=== PATIENT | female | born 1950 | race Caucasian/White ===

== ENCOUNTER 2019-05-05 20:23 | Emergency (ER) | payer MEDICARE, MEDICAID, SELFPAY ==
[2019-05-05] VITALS (24 sets, daily range): BP systolic 57–114; BP diastolic 36–86; PULSE 68–80; RESP 15–22; TEMP 36.7; O2SAT 95–99
--- NOTE | ~2019-05-05 | CT_ITS ---
EXAMINATION: CT abdomen pelvis w con DATE: 05/05/2019 22:25 INDICATION: Abdominal distention TECHNIQUE: Computed tomography (CT) of the abdomen and pelvis was performed with 100 cc Omnipaque 350 intravenous contrast. The dose-length product was 1370.56 mGy-cm. Automated exposure control and ite rative reconstruction technique were employed. COMPARISON: CT dated 11/12/2013 FINDINGS: No significant pleural or pericardial effusion. Heart size normal. There is atherosclerosis of the aorta and coronary arteries. Small subcentimeter hypodensities of the liver, most likely tio gn. There is focal fatty infiltration of the liver near the falciform ligament. The spleen, pancreas, adrenal glands and kidneys are unremarkable. There is mild thickening of the si gmoid colon and rectum. No lymphadenopathy. There is a dynamic compression screw in the right hip. No evidence for aneurysm. There is atherosclerotic narrowing of the iliac arteries and aorta distally. IMPRESSION: 1. Mild thickening of the sigmoid colon and rectum. Differential diagnosis includes colitis and less likely neoplasm. Recommend GI consultation. Reviewed, dictated and finalized at location A. ROOM IMPRESSION: 1. Mild thickening of the sigmoid colon and rectum. Differential diagnosis incl udes colitis and less likely neoplasm. Recommend GI consultation.
--- NOTE | 2019-05-05 20:26 | ED.GENADULT ---
HPI - General Adult General Chief complaint: Abdominal Pain <Mimi Bell PA-C - Last Filed: 05/05/19 23:37> Stated complaint: abd <Mimi Bell PA-C - Last Filed: 05/05/19 23:37> Time Seen by Provider: 05/05/19 20:26 <Mimi Bell PA-C - Last Filed: 05/05/19 23:37> Source: patient <CYNTHIA Pizarro Last Filed: 05/05/19 23:37> Mode of arrival: EMS <CYNTHIA Pizarro Last Filed: 05/05/19 23:37> Limitations: physical limitation <CYNTHIA Pizarro Last Filed: 05/05/19 23:37> History of Present Illness HPI narrative: Pt was sent from longterm for evaluation of possible bowel obstruction. KUB at the facility was unremarkable, they report the patient had a large bowel movement yesterday and the patient reports she had another today. She is complaining of pain across the lower abdomen. Denies fever. Continues to eat and drink as usual. 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 She also has [place] amputation on right. <Mimi Bell PA-C - Last Filed: 05/05/19 23:37> Onset (ago): hour(s) <Mimi Bell PA-C - Last Filed: 05/05/19 23:37> Location: abdomen (lower abdomen) <Mimi Bell PA-C - Last Filed: 05/05/19 23:37> Radiation: non-radiation <CYNTHIA Pizarro Last Filed: 05/05/19 23:37> Severity: mild <CYNTHIA Pizarro Last Filed: 05/05/19 23:37> Quality: aching and constant <CYNTHIA Pizarro Last Filed: 05/05/19 23:37> Relieving factors: none <CYNTHIA Pizarro Last Filed: 05/05/19 23:37> Exacerbating factors: other (worse with palpation.) <Mimi Bell PA-C - Last Filed: 05/05/19 23:37> Associated symptoms: denies other symptoms <Mimi Bell PA-C - Last Filed: 05/05/19 23:37> Treatments prior to arrival: none <Mimi Bell PA-C - Last Filed: 05/05/19 23:37> Related Data Allergies/adverse reactions: Allergies Allergy/AdvReac Type Severity Reaction Status Date / Time ciprofloxacin Allergy Mild Verified 08/17/18 20:18 felodipine Allergy Mild Verified 08/17/18 20:18 haloperidol Allergy Mild Verified 08/14/18 01:39 Penicillins Allergy Mild Verified 08/17/18 20:18 phenytoin Allergy Mild Verified 08/17/18 20:18 ziprasidone Allergy Mild Verified 08/17/18 20:18 BENZTROPINE MESYLATE Allergy Mild Uncoded 08/17/18 20:18 [place] Allergy Unknown Uncoded 08/14/18 01:39 <Mimi Bell PA-C - Last Filed: 05/05/19 23:37> Review of Systems Review of Systems: All systems reviewed & are unremarkable except as noted in HPI and below <Mimi Bell PA-C - Last Filed: 05/05/19 23:37> [facility] Past Medical History Medical History: Medical History (Updated 05/05/19 @ 23:34 by Mimi Bell PA-C) Amputation above knee Stroke <Mimi Bell PA-C - Last Filed: 05/05/19 23:37> Social History Social History: Social History (Updated 05/05/19 @ 20:50 by Mimi Bell PA-C) Smoking status: Never smoker Alcohol intake: never Substance use: never Living arrangements: longterm <Mimi Bell PA-C - Last Filed: 05/05/19 23:37> Exam Const: General: no acute distress and alert <Mimi Bell PA-C - Last Filed: 05/05/19 23:37> Orientation/consciousness: patient oriented x3 <Mimi Bell PA-C - Last Filed: 05/05/19 23:37> Limitations: physical limitations (speech is slurred as result of stroke) <CYNTHIA Pizarro Last Filed: 05/05/19 23:37> HENMT: Head: normal to inspection <CYNTHIA Pizarro Last Filed: 05/05/19 23:37> Eyes: Conjunctivae: conjunctivae normal <CYNTHIA Pizarro Last Filed: 05/05/19 23:37> Pupils: Equal, round and reactive pupils present <CYNTHIA Pizarro Last Filed: 05/05/19 23:37> Resp: Effort & Inspection: normal respiratory effort <CYNTHIA Pizarro Last Filed: 05/05/19 23:37> Auscultation: clear to auscultation bilaterally <Mimi Contreras Ame
[2019-05-05 21:01] LABS: Basophils Absolute Auto 0.1 K/mm3 (0.0-0.1); Basophils Percent Auto 0.7 % (0.2-1.2); Eosinophils Absolute Auto 0.2 K/mm3 (0-0.3); Eosinophils Percent Auto 2.1 % (0-4.4); Hemoglobin 12.1 g/dL (12.0-15.0); Immature Granulocyte Absolute 0.06 K/mm3 (0.00-0.031); Immature Granulocyte Percent A 0.6 % (0-0.5); Lymphocytes Absolute Auto 2.78 K/mm3 (0.9-3.2); Mean Corpuscular HGB Conc 33.6 g/dl (32-36); Mean Corpuscular Hemoglobin 29.2 pg (26-34); Mean Platelet Volume 11.9 fl (7.4-10.4); Monocytes Absolute Auto 0.6 K/mm3 (0.1-0.6); Monocytes Percent Auto 5.6 % (2.6-8.5); Platelet Count Result 231 k/mm3 (150-375); Red Blood Count 4.14 M/mm3 (4.2-5.4); White Blood Count 10.7 K/mm3 (4.5-10.0)
[2019-05-05 21:12] LABS: Alanine Aminotransferase 20 U/L (4-35); Albumin Level 4.2 g/dL (3.5-5.1); Alkaline Phosphatase 81 U/L (38-126); Aspartate Amino Transferase 22 U/L (14-36); Bilirubin,Total 0.4 mg/dL (0.2-1.3); Blood Urea Nitrogen 16 mg/dL (7-17); Calcium 9.8 mg/dL (8.4-10.2); Carbon Dioxide 24 mmol/L (22-30); Chloride 90 mmol/L (98-107); Estimated Glomerular Filt Rate > 60; Glucose 156 mg/dL (65-105); Potassium 3.3 mmol/L (3.4-5.0); Sodium 128 mmol/L (137-145)
[2019-05-05] MEDS: SODIUM CHLORIDE 0.9% IV 1,000 ML 999 ML IV CONT (21:13)
[2019-05-05 21:15] LABS: Add Urine Microscopic? YES; Appearance Urine Clear (Clear); Bacteria Urine Trace /hpf; Bilirubin Urine Negative (Negative); Blood Urine Negative (Negative); Color Urine Straw (Yellow); Glucose Urine UA Negative (Negative); Ketones Urine Negative (Negative); Leukocyte Esterase Ur 2+ LEU/UL (Negative); Nitrate Urine Negative (Negative); Protein Urine Negative (Negative); RBC Urine 0-2 /hpf (0-2); Specific Grav Ur 1.005 (1.001-1.035); Squamous Epithelial Cell Urine Occasional /hpf (Few); Urobilinogen Urine Negative mg/dL (<2.0)
[2019-05-05 21:38] LABS: Magnesium 1.4 mg/dL (1.6-2.3)
[2019-05-06] VITALS (7 sets, daily range): BP systolic 107; BP diastolic 45; PULSE 71–81; RESP 11–23; O2SAT 98–100
--- NOTE | 2019-05-06 01:29 | PC.NURSE ---
Addendum entered by Yumiko Franklin 05/06/19 01:51: CALLED [facility] FOR UPDATE...EMS EN ROUTE TO DROP OFF PATIENT, WILL TAKE THIS PATIENT AFTER DROP OFF COMPLETE Original Note: cALLED [facility] TO TRANSPORT TO FACILITY....ETA 20-30 MINUTES
--- NOTE | 2019-05-10 03:08 | PC.NURSE ---
Late Entry NS was finished or infused at 2208 on 05/05/2019. Total volume infused was 1000ml.
== END 2019-05-06 02:20 ==
PROVIDERS: Physician Assistant; Emergency Provider Emergency Medicine; PCP Family Medicine
DX: R10.30 Lower abdominal pain, unspecified (principal); Z89.611 Acquired absence of right leg above knee; I95.9 Hypotension, unspecified; R93.3 Abnormal findings on diagnostic imaging of other parts of digestive tract
CPT/HCPCS: 36415; 51701; 74177; 80053; 81001; 83735; 85025; 96360; 99284; J7030; Q9967

== ENCOUNTER 2019-07-10 10:57 | Inpatient (IN) | payer MEDICARE, MEDICAID, SELFPAY ==
[2019-07-10] VITALS (14 sets, daily range): BP systolic 48–118; BP diastolic 28–84; PULSE 84–145; RESP 25–42; TEMP 36.4–36.7; O2SAT 76–99; BMI 32.5
--- NOTE | ~2019-07-10 | XR_ITS ---
XR chest 1V portable DATE: 07/10/2019 11:32 INDICATION: Cough, fever TECHNIQUE: Portable upright AP chest on 07/10/2019 at 1130 hours COMPARISON: 08/17/2018 portable AP chest 08/14/2018 CTA chest FINDINGS: Again noted is diffuse interstitial prominence of the lungs, present on 08/17/2018, likely d ue to chronic interstitial fibrotic change. Superimposed mild interstitial pneumonitis or edema can't be excluded. No pleural effusion. Heart size appears within normal range. Aortic arch calcification. Osteoarthritic changes at the glenohumeral joints. Diffuse osteopenia. IMPRESSION: Chronic interstitial changes throughout both lungs Reviewed, dictated and finalized at location A.
--- NOTE | ~2019-07-10 | XR_ITS ---
XR chest port-a-cath/central DATE: 07/10/2019 14:09 INDICATION: Central line placement TECHNIQUE: Portable AP chest on 07/10/2019 at 1403 hours COMPARISON: 07/10/2019 portable AP chest at 1130 hours FINDINGS: Right internal jugular central venous catheter overlies the caudal aspect of the superior v maria m cava. No evidence of pneumothorax. There are interstitial infiltrates predominating in the lower lung zones. No pleural effusion. Normal heart size. IMPRESSION: Right internal jugular central venous catheter placement in caudal aspect of superior juliana a cava; no pneumothorax Reviewed, dictated and finalized at Location A. Reviewed, dictated and finalized at location A. IMPRESSION: Right internal jugular central venous catheter placement in caudal aspect of superior vena cava; no pneumothorax
--- NOTE | 2019-07-10 11:14 | ECG_ITS ---
Measurements Intervals [place] Rate: 82 P: 66 [place]: 193 QRS: -20 QRSD: 105 T: 33 QT: 376 QTc: 440 Interpretive Statements SINUS RHYTHM VENTRICULAR BIGEMINY AND VENTRICULAR PREMATURE COMPLEX POSSIBLE LEFT ATRIAL ENLARGEMENT BORDERLINE ST-T WAVE ABNORMALITY- ANT/INF LEADS ABNORMAL ECG Electronically Signed On 07-10-2019 16:33:28 CDT by Regulo Swift D.O.
--- NOTE | 2019-07-10 11:17 | ED.FEVER ---
HPI - Fever General Chief Complaint: Fever Stated Complaint: lethargy History of Present Illness HPI Narrative: Fever cough and confusion Related Data Allergies Allergy/AdvReac Type Severity Reaction Status Date / Time ciprofloxacin Allergy Mild Verified 08/17/18 20:18 felodipine Allergy Mild Verified 08/17/18 20:18 haloperidol Allergy Mild Verified 08/14/18 01:39 Penicillins Allergy Mild Verified 08/17/18 20:18 phenytoin Allergy Mild Verified 08/17/18 20:18 ziprasidone Allergy Mild Verified 08/17/18 20:18 BENZTROPINE MESYLATE Allergy Mild Uncoded 08/17/18 20:18 [place] Allergy Unknown Uncoded 08/14/18 01:39 PMFSH Past Medical History Medical History (Updated 07/10/19 @ 14:44 by Tobin Mike MD) Amputation above knee Stroke Social History Social History (Updated 05/05/19 @ 20:50 by Mimi Bell PA-C) Smoking status: Never smoker Alcohol intake: never Substance use: never Gender identity (if verbalized by the patient): Female Course Vital Signs Vital signs: Vital Signs Temperature 36.7 C 07/10/19 11:26 Pulse Rate 86 07/10/19 11:26 Respiratory Rate 25 H 07/10/19 11:26 Blood Pressure 92/64 L 07/10/19 11:26 Pulse Oximetry 98 07/10/19 11:26 Temperature 36.7 C 07/10/19 11:26 Pulse Rate 84 07/10/19 12:49 Respiratory Rate 30 H 07/10/19 12:49 Blood Pressure 78/50 L 07/10/19 12:49 Pulse Oximetry 99 07/10/19 12:49 Procedures Central Line Placement Right IJ: Central Line Date: 07/10/19 Central Line Time: 14:30 Patient Placed on Monitor/Pulse Ox: Yes Max. Sterile Barrier Technique: Caps, large sterile sheet and hand hygiene Central Line Prep: 2% chlorhexidine scrub and sterile drapes applied Technique: US-Guided Local Anesthetic: lidocaine 1% Amount of anesthesia used (mL): 3 Ultrasound Used for Placement: Yes Central Line Lumen Inserted: triple Post Procedure: sutured in place, good blood return, all ports aspirated, flushed, capped and sterile dressing applied Post Procedure X-Ray: tip of catheter in good position Patient Tolerated Procedure: well Complications: none MDM - Fever Differential Diagnosis Differential diagnosis: Likely fever of unknown origin, community acquired pneumonia, pyelonephritis, viral infection, sepsis, influenza and other (COVID-19) Medical Records Attestation: I reviewed the patient's medical records. Lab Data Attestation: I reviewed the patient's lab results. Result diagrams: 07/10/19 11:33 07/10/19 11:33 Labs: Lab Results 07/10/19 07/10/19 07/10/19 Range/Units 11:33 11:33 11:33 WBC 12.7 H (4.5-10.0) K/mm3 RBC 4.38 (4.2-5.4) M/mm3 Hgb 12.8 (12.0-15.0) g/dL Hct 38.4 (37.0-47.0) % MCV 87.7 (80-100) fl MCH 29.2 (26-34) pg MCHC 33.3 (32-36) g/dl RDW 14.6 H (11.5-14.5) % Plt Count 224 (150-375) k/mm3 MPV 12.3 H (7.4-10.4) fl Immature Gran % (Auto) 0.3 (0-0.5) % Neut % (Auto) 87.7 H (45.5-73.1) % Lymph % (Auto) 6.8 L (18.3-44.2) % Phillips % (Auto) 5.0 (2.6-8.5) % Eos % (Auto) 0.0 (0-4.4) % Baso % (Auto) 0.2 (0.2-1.2) % Lymph # (Auto) 0.86 L (0.9-3.2) K/mm3 Phillips # (Auto) 0.6 (0.1-0.6) K/mm3 Eos # (Auto) 0.0 (0-0.3) K/mm3 Baso # (Auto) 0.0 (0.0-0.1) K/mm3 Abs Immat Gran (auto) 0.04 H (0.00-0.031) K/mm3 Absolute Neuts (auto) 11.2 H (1.3-6.7) K/mm3 Absolute Nucleated RBC 0.0 (0.0-0.012) K/mm3 Nucleated RBC % 0.0 (0.0-0.2) % PT 12.2 (11.1-14.7) Seconds INR 0.9 APTT 35.8 (22.3-36.8) SECONDS Sodium 132 L (137-145) mmol/L Potassium 3.4 (3.4-5.0) mmol/L Chloride 95 L (98-107) mmol/L Carbon Dioxide 20 L (22-30) mmol/L BUN 17 (7-17) mg/dL Creatinine 1.00 (0.7-1.0) mg/dL Estim Creat Clear Calc Not Reportable Estimated GFR 55 L (59 - ) Glucose 335 H
[2019-07-10] MEDS: SODIUM CHLORIDE 0.9% IV 1,000 ML 999 ML IV CONT ×2 (11:45→13:05)
[2019-07-10 12:00] LABS: Basophils Percent Auto 0.2 % (0.2-1.2); Hematocrit 38.4 % (37.0-47.0); Hemoglobin 12.8 g/dL (12.0-15.0); Immature Granulocyte Absolute 0.04 K/mm3 (0.00-0.031); Immature Granulocyte Percent A 0.3 % (0-0.5); Lymphocytes Absolute Auto 0.86 K/mm3 (0.9-3.2); Lymphocytes Percent Auto 6.8 % (18.3-44.2); Mean Corpuscular HGB Conc 33.3 g/dl (32-36); Mean Corpuscular Hemoglobin 29.2 pg (26-34); Mean Corpuscular Volume 87.7 fl (80-100); Mean Platelet Volume 12.3 fl (7.4-10.4); Monocytes Absolute Auto 0.6 K/mm3 (0.1-0.6); Neutrophils Absolute Auto 11.2 K/mm3 (1.3-6.7); Neutrophils Percent Auto 87.7 % (45.5-73.1); Platelet Count Result 224 k/mm3 (150-375); Red Blood Count 4.38 M/mm3 (4.2-5.4); Red Cell Distribution Width 14.6 % (11.5-14.5); White Blood Count 12.7 K/mm3 (4.5-10.0)
[2019-07-10 12:15] LABS: Add Urine Microscopic? YES; Appearance Urine Cloudy (Clear); Bacteria Urine Trace /hpf; Bilirubin Urine Negative (Negative); Blood Urine Negative (Negative); Color Urine Yellow (Yellow); Glucose Urine UA 1+ mg/dL (Negative); Ketones Urine Trace mg/dL (Negative); Leukocyte Esterase Ur 3+ LEU/UL (Negative); Mucus Urine Rare /lpf; Nitrate Urine Negative (Negative); Protein Urine 2+ mg/dL (Negative); Specific Grav Ur 1.016 (1.001-1.035); Squamous Epithelial Cell Urine Occasional /hpf (Few); Urobilinogen Urine Negative mg/dL (<2.0); WBC Clumps Urine Present /HPF; WBC Urine >75 /hpf
[2019-07-10 12:16] LABS: INR 0.9; Prothrombin Time 12.2 Seconds (11.1-14.7)
[2019-07-10 12:17] LABS: Partial Thromboplastin Time 35.8 SECONDS (22.3-36.8)
[2019-07-10 12:21] LABS: Alanine Aminotransferase 22 U/L (4-35); Albumin Level 4.2 g/dL (3.5-5.1); Alkaline Phosphatase 77 U/L (38-126); Aspartate Amino Transferase 28 U/L (14-36); Bilirubin,Total 0.2 mg/dL (0.2-1.3); Blood Urea Nitrogen 17 mg/dL (7-17); Calcium 8.3 mg/dL (8.4-10.2); Carbon Dioxide 20 mmol/L (22-30); Chloride 95 mmol/L (98-107); Estimated Glomerular Filt Rate 55; Glucose 335 mg/dL (65-105); Potassium 3.4 mmol/L (3.4-5.0); Sodium 132 mmol/L (137-145)
[2019-07-10 12:29] LABS: CRP 19.6 mg/dL (<1.0)
[2019-07-10] MEDS: NOREPINEPHRINE 8 MG/D5W 250 ML 8 MG/250 ML BAG 9.4 MG IV CONT (14:17)
[2019-07-10 14:43] LABS: Base Excess ABG -2.7 mEq/l (+/-2.0); Fractional Inspired Oxygen 21 %; HCO3 ABG 20.4 mEq/l (22.0-26.0); Oxygen Content ABG 17.6 %vol (16.0-22.0); Oxygen Saturation ABG 96.1 % (95.0-100.0); Oxyhemoglobin 94.5 % THb (90.0-100.0); PCO2 ABG 30.8 mmHg (35.0-45.0); PO2 ABG 77.8 mmHg (80.0-100.0); Total Hemoglobin 13.2 g/dL (12.0-18.0)
[2019-07-10 14:45] LABS: Device ROOM AIR; Site Drawn RIGHT BRACHIAL
[2019-07-10 14:57] LABS: Reflex Lactic Acid Yes or No Add Lactic
[2019-07-10 15:22] LABS: Lactic Acid 0.9 mmol/L (0.7-2.1)
[2019-07-10 15:47] LABS: Lactate Dehydrogenase 497 U/L (313-618)
--- NOTE | 2019-07-10 16:46 | PC.NURSE ---
This patient, Patrica Rdz, was admitted to Intensive Care Unit-5. Patient/family oriented to hospital policies and general routines including ID bracelet, bed and alarms, visiting hours, pain management, procedures, bathroom and other care routines, personal items, smoking policy, room service/diet, and visiting hours. Valuables list has been completed. Information on how to activate the Rapid Response Team has been discussed. Patient/Family are encouraged to report perceived risks to care and to ask questions if they do not understand what they are told or what they should do.
--- NOTE | 2019-07-10 16:50 | PM.IMHP ---
H&P: HPI History of Present Illness Chief complaint: Septic Shock/Pneumonia/UTI Narrative: Patrica Rdz is a 69 year old female [facility] Past Medical History Medical History (Updated 07/10/19 @ 14:44 by Tobin Mike MD) Amputation above knee Stroke Social History Social History (Updated 05/05/19 @ 20:50 by Mimi Bell PAJasmin) Smoking status: Former smoker Alcohol intake: never Substance use: never Gender identity (if verbalized by the patient): Female Spiritual care concerns: No Agree to blood products: No Meds Home Medications and Allergies Home Medications Medication Instructions Recorded Confirmed Type acetaminophen [Tylenol] 325 mg PO Q4-6H PRN 07/10/19 07/10/19 History ascorbic acid (vitamin C) 500 mg PO DAILY 07/10/19 07/10/19 History aspirin [Aspirin Childrens] 81 mg PO DAILY 07/10/19 07/10/19 History atorvastatin 20 mg PO HS 07/10/19 07/10/19 History bisacodyl 10 mg SD DAILY PRN 07/10/19 07/10/19 History calcium carbonate 600 mg PO BID 07/10/19 07/10/19 History cetirizine 10 mg PO HS 07/10/19 07/10/19 History clozapine 75 mg PO DAILY 07/10/19 07/10/19 History duloxetine 30 mg PO DAILY 07/10/19 07/10/19 History ferrous sulfate 325 mg PO DAILY 07/10/19 07/10/19 History fluticasone furoate-vilanterol 1 inh INHALATION DAILY 07/10/19 07/10/19 History [Breo Ellipta] furosemide [Lasix] 40 mg PO DAILY 07/10/19 07/10/19 History guaifenesin 200 mg PO Q6H PRN 07/10/19 07/10/19 History ipratropium-albuterol 3 ml INHALATION Q6H PRN 07/10/19 07/10/19 History lactulose 20 g PO BID 07/10/19 07/10/19 History levothyroxine 112 mcg PO DAILY 07/10/19 07/10/19 History metformin 500 mg PO DAILY 07/10/19 07/10/19 History midodrine 10 mg PO TID 07/10/19 07/10/19 History omega [id number] oil [Fish Oil] 1 cap PO BID 07/10/19 07/10/19 History oxycodone 5 mg PO Q12H PRN 07/10/19 07/10/19 History polyethylene glycol 3350 [Miralax] 17 g PO DAILY 07/10/19 07/10/19 History potassium chloride 20 meq PO DAILY 07/10/19 07/10/19 History sennosides-docusate sodium [Senna 2 tab-cap PO BID 07/10/19 07/10/19 History Plus] sodium chloride [Nasal [place] 1 spray INTRANASAL Q2H PRN 07/10/19 07/10/19 History (sodium chloride)] zinc oxide 1 applic TOPICAL QID PRN 07/10/19 07/10/19 History zinc sulfate 220 mg PO DAILY 07/10/19 07/10/19 History Allergies Allergy/AdvReac Type Severity Reaction Status Date / Time ciprofloxacin Allergy Mild Verified 08/17/18 20:18 felodipine Allergy Mild Verified 08/17/18 20:18 haloperidol Allergy Mild Verified 08/14/18 01:39 Penicillins Allergy Mild Verified 08/17/18 20:18 phenytoin Allergy Mild Verified 08/17/18 20:18 ziprasidone Allergy Mild Verified 08/17/18 20:18 BENZTROPINE MESYLATE Allergy Mild Uncoded 08/17/18 20:18 [place] Allergy Unknown Uncoded 08/14/18 01:39 Vital Signs Vital Signs - 24 hr 07/10/19 11:26 07/10/19 12:49 07/10/19 15:25 Temperature 98.0 F Pulse Rate 86 84 110 H Respiratory Rate 25 H 30 H 30 H Blood Pressure 92/64 L 78/50 L 72/59 L Pulse Oximetry 98 99 99 07/10/19 16:37 Temperature 97.5 F L Pulse Rate 116 H Respiratory Rate 30 H Blood Pressure 69/47 L Pulse Oximetry 94 H&P: Results Labs Labs: Short CBC 07/10/19 Range/Units 11:33 WBC 12.7 H (4.5-10.0) K/mm3 Hgb 12.8 (12.0-15.0) g/dL Hct 38.4 (37.0-47.0) % Plt Count 224 (150-375) k/mm3 BMP 07/10/19 11:33 Sodium 132 L Potassium 3.4 Chloride 95 L Carbon Dioxide 20 L BUN 17 Creatinine 1.00 Glucose 335 H Calcium 8.3 L Liver Function 07/10/19 Range/Units 11:33 Total Bilirubin 0.2 (0.2-1.3) mg/dL AST 28 (14-36) U/L ALT 22 (4-35) U/L Alkaline Phosphatase 77 (38-126) U/L Albumin 4.2 (3.5-5.1) g/dL Urine 07/10/19 Range/Units 11:33 Urine Color Yellow (Yellow) Urine Appearance Cloudy H (Clear) Urine pH 5.0 (5.0-9.0) Ur Specific [place] 1.016 (1.001-1.035) Urine Protein 2+ H (Negative) m
--- NOTE | 2019-07-10 17:00 | PM.IMHP ---
H&P: HPI History of Present Illness Chief complaint: Fever, cough, confusion. Narrative: HISTORY AND PHYSICAL/ SUMMARY Patrica Rdz is a 69-year-old female with multiple medical problems including history of stroke, dementia, epilepsy, coronary artery disease, peripheral vascular disease, hypertension, COPD, diabetes, and several other comorbidities who presented to the emergency department earlier today via EMS from [facility] for evaluation of fever, cough, and confusion. She has been feeling unwell for several weeks, mainly with nausea however she tends to have at least 1 episode of emesis each day. More recently, she has developed a cough that has been productive of clear and occasionally yellow phlegm. She is alert and oriented at the time my evaluation, but reportedly had been confused at the skilled nursing. This morning she was sent in due to fever and hypotension, although she has been afebrile since arrival. Ultimately she was admitted to the intensive care unit with septic shock attributed to urinary tract infection and possible pneumonia, rule out COVID-19. Since my initial assessment, her condition has declined and she is now on maximum doses of norepinephrine, vasopressin, and phenylephrine with blood pressures in the 60s to 70s systolic. She has also become tachycardic and hypoxic, now on a non-rebreather with respirations in the 40s. I came to re-evaluate the patient, as she had changed her code status from a DNR to a full code on admission. After a fairly lengthy discussion with the patient, she opted for comfort measures as she did not wish to be intubated. Review of Systems Review of Systems: Narrative: Twelve systems were reviewed with pertinent positives and negatives as per HPI. No headache or neck ache. She denies sinus congestion, rhinorrhea, otalgia, and odynophagia. No chest pain or pleuritic pain. She began feeling short of breath prior to my last assessment, with orthopnea as well. She reports urinary frequency and urgency but denied dysuria. No diarrhea. Complains of being thirsty with mild blurry vision. No known sick contacts. No recent travel. Except as documented, all other systems were reviewed and are negative. [facility] Past Medical History Medical History (Updated 07/10/19 @ 23:51 by Katherine Sandoval PA-C) Autonomic dysfunction Bipolar disorder Cerebrovascular accident (CVA) with right hemiparesis Chronic anemia COPD with emphysema Coronary artery disease Depression with anxiety Diastolic congestive heart failure GERD (gastroesophageal reflux disease) Hx of Clostridium difficile infection Hyperlipidemia Hypertension Hypothyroidism Peripheral vascular disease Seizure disorder Type 2 diabetes mellitus with peripheral neuropathy Surgical History Surgical History (Updated 07/10/19 @ 23:36 by Katheirne Sandoval PA-C) History of section History of hip surgery History of hysterectomy Status post above-knee amputation of right lower extremity Family History Family History (Updated 07/10/19 @ 23:37 by Katherine Sandoval PA-C) Other Acute myocardial infarction Social History Social History (Updated 07/10/19 @ 23:37 by Katherine Sandoval PA-C) Social History: The patient is a resident at [facility]. Her sister, Elisabeth Ventura, is her healthcare power of energy attorney. She wishes to be a do not resuscitate. She smoked 1 pack of cigarettes per day for 30 years and quit many years ago. No alcohol or drug abuse. Spiritual care concerns: No Agree to blood products: No Meds Home Medications and Allergies Home Medications Medication Instructions Recorded Confirmed Type acetaminophen [Tylenol] 325 mg PO Q4-6H PRN 07/10/19 07/10/19 History ascorbic acid (vitamin C) 500 mg PO DAILY 07/10/19 07/10/19 History aspirin [Aspirin Childrens] 81 mg PO DAILY 07/10/19 07/10/19 History atorvastatin 20 mg PO HS 07/10/19 07/10/19 History
[2019-07-10] MEDS: NOREPINEPHRINE 8 MG/D5W 250 ML 8 MG/250 ML BAG 41.3 MG IV CONT (17:07)
[2019-07-10] MEDS: VASOPRESSIN INJ 100 UNITS in DEXTROSE 5% 95 ML IV CONT (18:33)
[2019-07-10] MEDS: NOREPINEPHRINE 8 MG/D5W 250 ML 8 MG/250 ML BAG 56.3 MG IV CONT (20:38)
[2019-07-10] MEDS: SODIUM CHLORIDE 0.9% IV 1,000 ML 150 ML IV CONT (20:38)
[2019-07-10] MEDS: HYDROCORTISONE SODIUM SUCCINATE 100 MG/2 ML VIAL IV PUSH (20:40)
[2019-07-10] MEDS: FAMOTIDINE 20 MG/2 ML VIAL IV PUSH (20:41)
[2019-07-10 22:14] LABS: Hemoglobin A1C 8.1 % (<5.7)
[2019-07-10 22:18] LABS: Blood Urea Nitrogen 10 mg/dL (7-17); Calcium 6.5 mg/dL (8.4-10.2); Carbon Dioxide 14 mmol/L (22-30); Chloride 95 mmol/L (98-107); Estimated CRCL calculation 65 ml/min; Estimated Glomerular Filt Rate > 60; Glucose 471 mg/dL (65-105); Potassium 3.5 mmol/L (3.4-5.0); Sodium 127 mmol/L (137-145)
[2019-07-10 22:22] LABS: Beta-Hydroxybutyrate/Acetoacetate 4.22 mmol/L (0.02-0.27)
[2019-07-10 22:27] LABS: pH ABG 7.323 (7.350-7.450)
[2019-07-10 22:28] LABS: Base Excess ABG -12.8 mEq/l (+/-2.0); Oxygen Saturation ABG 92.2 % (95.0-100.0); PCO2 ABG 21.6 mmHg (35.0-45.0); PO2 ABG 66.1 mmHg (80.0-100.0)
[2019-07-10 22:29] LABS: Alveolar/Arterial O2 Gradient 625.3 mmHg; Carboxyhemoglobin 0.3 % THb (0-2.0); Fractional Inspired Oxygen 100 %; Methemoglobin ABG 0.5 %THb (0-1.5); Oxygen Content ABG 18.1 %vol (16.0-22.0); PO2 FiO2 Ratio Arterial Blood 0.66 %; Reduced Hemoglobin 9.2 %THb (0-5.0); Site Drawn LEFT FEMORAL; Total Hemoglobin 14.3 g/dL (12.0-18.0)
[2019-07-10 22:30] LABS: Device NON-REBREATHER MASK
[2019-07-10] MEDS: MORPHINE SULFATE 4 MG/ML INJ 2 MG IV PUSH (22:39)
[2019-07-10] MEDS: SODIUM BICARBONATE 8.4% 50 MEQ/50 ML VIAL IV PUSH (22:42)
[2019-07-10] MEDS: MORPHINE SULFATE 4 MG/ML INJ IV PUSH (22:51)
[2019-07-10] MEDS: LORAZEPAM INJ 2 MG/ML VIAL 1 MG IV PUSH (22:58)
--- NOTE | 2019-07-10 23:25 | PC.NURSE ---
Patient dnr status and comfort care. general handling supervisor, Katherine JEFFERSON and next of kin notified.
[2019-07-10 23:45] LABS: Glucose Point of Care 456 (65-105)
[2019-07-12 13:06] LABS: Procalcitonin 0.68 ng/mL (<0.10)
== END 2019-07-10 23:40 | disposition expired | DRG 871 ==
LOC: ANHED 14:44 → ANHICU 15:00
PROVIDERS: Physician Assistant; Admitting Provider Internal Medicine; Emergency Provider Emergency Medicine; PCP Family Medicine; Visit Provider Internal Medicine
DX: A41.9 Sepsis, unspecified organism (principal); U07.1 COVID-19; R65.21 Severe sepsis with septic shock; E11.10 Type 2 diabetes mellitus with ketoacidosis without coma; J10.08 Influenza due to other identified influenza virus with other specified pneumonia; J44.0 Chronic obstructive pulmonary disease with (acute) lower respiratory infection; I69.351 Hemiplegia and hemiparesis following cerebral infarction affecting right dominant side; N39.0 Urinary tract infection, site not specified; I50.30 Unspecified diastolic (congestive) heart failure; Z66 Do not resuscitate; I25.10 Atherosclerotic heart disease of native coronary artery without angina pectoris; E78.5 Hyperlipidemia, unspecified; K21.9 Gastro-esophageal reflux disease without esophagitis; D64.9 Anemia, unspecified; G40.909 Epilepsy, unspecified, not intractable, without status epilepticus; F41.8 Other specified anxiety disorders; E11.42 Type 2 diabetes mellitus with diabetic polyneuropathy; I11.0 Hypertensive heart disease with heart failure; B96.20 Unspecified Escherichia coli [E. coli] as the cause of diseases classified elsewhere
CPT/HCPCS: 36415; 36556; 36600; 51701; 71045; 80048; 80053; 81001; 82010; 82375; 82728; 82805; 83036; 83050; 83605; 83615; 84145; 85025; 85610; 85730; 86140; 86850; 86900; 86901; 87040; 87077; 87086; 87088; 87186; 87804; 93005; 96361; 96365; 96366; 96367; 96368; 99291; A9270; C1751; J0456; J0696; J1720; J2060; J2270; J2370; J3370; J7030; J7060